=== PATIENT | female | born 1935 ===

== ENCOUNTER 2016-09-26 08:12 | Day surgery (SDC) | payer MEDICARE, OTHER ==
[2016-09-26 08:48] VITALS: BP 115/78; PULSE 71; RESP 18; TEMP 97; O2SAT 90
[2016-09-26 09:56] VITALS: BP 118/51; PULSE 73; RESP 18; TEMP 97; O2SAT 91
[2016-09-26 10:05] VITALS: BP 128/62; PULSE 75; RESP 18; TEMP 97.5; O2SAT 95
[2016-09-26 10:25] VITALS: BP 127/76; PULSE 71; RESP 18; TEMP 97.5; O2SAT 97
--- NOTE | 2016-09-26 10:45 | RADRPT ---
EXAM DATE/TIME: 09/26/2016 08:59 [place] COMPARISON: No previous studies available for comparison. INDICATIONS : Ascites. MEDICAL HISTORY : Gastroesophageal reflux disease. Hypercholesterolemia. Chronic obstructive pulmonary disease. Dementi a. Cirrhosis. Chronic kidney diease stage III. Leukopenia. Hypothyroidism. Osteoporois. Pulmonary nod ule. Ascites. SURGICAL HISTORY : Paracentesis. ENCOUNTER: Initial ACUITY: 2 weeks PAIN SCORE: 5/10 LOCATION: Right lower quadrant FLUID: Total volume of 5000 cc of clear, green fluid was removed. Fluid was discarded. Paracentesis was therapeutic only. Post procedure scanning reveals no hematoma or other complication. TECHNIQUE: 1. Ultrasound guidance for abdominal paracentesis. 2. Paracentesis. The risks, benefits, and alternatives to ultrasound guided paracentesis were explained to the patient in detail including the risk of bleeding and infection. Written and verbal informed consent was obt ained. With the patient on the ultrasound table, ultrasound imaging was used to select the most appropriate approach for paracentesis. Overlying skin was prepped and draped in the usual sterile fashion and wi th a local anesthetic, a dermatotomy was made with an 11 blade scalpel. A 6 [place] [id number] ca theter was introduced into the peritoneal cavity and fluid was collected. The patient tolerated the procedure well and left the ultrasound suite in stable condition. CONCLUSION: Uncomplicated ultrasound guided paracentesis. Since we were unsure the patient's prior paracentesis history, we stopped removal of fluid at 5 L. Marc Bustamante MD on September 26, 2016 at 10:43 Board Certified Radiologist. This report was verified electronically.
== END 2016-09-26 10:42 | disposition home or self-care (01) ==
LOC: HRAD 08:12 → HRIP 08:13 → HRAD 10:42
PROVIDERS: ATTEND Family Medicine
DX: R18.8 Other ascites (principal)
CPT/HCPCS: 49083; C1729

== ENCOUNTER 2016-09-27 12:58 | Day surgery (SDC) | payer MEDICARE, OTHER ==
[2016-09-27 13:35] VITALS: BP 125/62; PULSE 92; RESP 18; TEMP 97.5; O2SAT 90
== END 2016-09-27 16:28 | disposition short-term general hospital (02) ==
LOC: HRAD 12:58 → HRIP 13:00 → HRAD 16:28
PROVIDERS: ATTEND Radiology Body Imaging
DX: Z04.8 Encounter for examination and observation for other specified reasons (principal)
CPT/HCPCS: 99211; G0463